=== PATIENT | female | born 1965 | race Caucasian/White ===

== ENCOUNTER 2019-06-30 15:03 | Emergency (ER) | payer BC, SELFPAY ==
--- NOTE | 2019-06-30 15:28 | RAD ---
EXAM: 3 views of the left foot HISTORY: Foot pain COMPARISON: None FINDINGS: 3 views of the left foot shows no evidence of acute fracture or dislocation. No soft tissue swelling is seen. No degenerative changes are present. IMPRESSION: No evidence of acute osseous abnormality.
[2019-06-30] MEDS ORDERED: Ibuprofen 200 MG TAB ONE (15:33)
[2019-06-30] MEDS ORDERED: Acetaminophen 500 MG TAB ONE (15:33)
== END 2019-06-30 15:39 | disposition home or self-care (01) ==
LOC: BURERS 15:03
DX: S93.402A Sprain of unspecified ligament of left ankle, initial encounter (principal); S93.602A Unspecified sprain of left foot, initial encounter; E11.9 Type 2 diabetes mellitus without complications; Z79.84 Long term (current) use of oral hypoglycemic drugs; X50.9XXA Other and unspecified overexertion or strenuous movements or postures, initial encounter